=== PATIENT | female | born 1950 | race Caucasian/White ===

== ENCOUNTER 2016-11-23 11:04 | Outpatient (CLI) | payer BC, OTHER ==
[~2016-11-23 11:04] MED LIST: OMEP20TA68 PO
[2016-11-24 10:59] LABS: ALBUMIN 3.6 g/dL (3.4-5.0); BILIRUBIN,TOTAL 0.2 mg/dL (0.2-1.0); CALCIUM 9.2 mg/dL (8.5-10.1); CREATININE 0.8 mg/dL (0.6-1.3); POTASSIUM 4.5 mmol/L (3.5-5.1); TOTAL PROTEIN, SERUM 7.3 g/dL (6.4-8.2)
[2016-11-24 11:09] LABS: THYROID STIMULATING HORMONE 1.334 mIU/mL (0.358-3.740)
[2016-11-24 11:47] LABS: BASOPHILS % (AUTO) 0.5 % (0.0-2.0); EOSINOPHILS # (AUTO) 0.1 K/uL (0.0-0.7); EOSINOPHILS % (AUTO) 1.1 % (0.0-7.0); HEMATOCRIT 42.2 % (37-47); HEMOGLOBIN 14.1 G/DL (12.0-16.0); LYMPHOCYTES # (AUTO) 1.8 K/UL (0.8-4.8); LYMPHOCYTES % (AUTO) 29.5 % (20.5-51.5); MEAN CORPUSCULAR HEMOGLOBIN 28.1 UUG (27.0-31.0); MEAN CORPUSCULAR HGB CONC 34 g/dL (32.0-37.0); MEAN CORPUSCULAR VOLUME 83.8 FL (81.0-99.0); MONOCYTES # (AUTO) 0.3 K/UL (0.1-1.30); MONOCYTES % (AUTO) 4.9 % (0.0-11.0); PLATELET COUNT (AUTO) 211 K/UL (150-450); RED BLOOD CELL COUNT(AUTO) 5.03 MIL/UL (4.2-5.4); RED CELL DISTRIBUTION WIDTH 13.8 % (11.5-14.5); WHITE BLOOD COUNT (AUTO) 6.2 K/UL (4.0-11.2)
== END 2016-11-23 23:59 | disposition home or self-care (01) ==
LOC: LAB 11:04
PROVIDERS: ATTEND Family Medicine
DX: K29.70 Gastritis, unspecified, without bleeding (principal); K76.0 Fatty (change of) liver, not elsewhere classified
CPT/HCPCS: 36415; 84443; 85025

== ENCOUNTER 2017-06-10 15:20 | Emergency (ER) | payer BC, OTHER ==
[~2017-06-10] VITALS: Ht 160 cm; Wt 68.0 kg
[~2017-06-10 15:20] MED LIST changes: +OMEP20TA5 PO; -OMEP20TA68 PO
[2017-06-10 15:54] VITALS: BP 144/76
--- NOTE | 2017-06-10 15:54 | NUR ---
Patient discharged to home in stable conditon. Written and verbal after care instructions given. Patient verbalizes understanding of instructions.
== END 2017-06-10 15:55 | disposition home or self-care (01) ==
LOC: ER 15:21
DX: R09.82 Postnasal drip (principal); J45.909 Unspecified asthma, uncomplicated; K21.9 Gastro-esophageal reflux disease without esophagitis; K58.9 Irritable bowel syndrome, unspecified
CPT/HCPCS: 99282; A4663

== ENCOUNTER 2017-12-03 14:07 | Outpatient (CLI) | payer BC, OTHER ==
[2017-12-03 15:02] LABS: BASOPHILS % (AUTO) 0.4 % (0.0-2.0); EOSINOPHILS # (AUTO) 0.1 K/uL (0.0-0.7); EOSINOPHILS % (AUTO) 2.1 % (0.0-7.0); HEMATOCRIT 42.4 % (31.2-41.9); MEAN CORPUSCULAR HEMOGLOBIN 28.4 uug (24.7-32.8); MEAN CORPUSCULAR HGB CONC 33 g/dL (32.3-35.6); MONOCYTES # (AUTO) 0.4 K/uL (2.0-10.0); MONOCYTES % (AUTO) 6.2 % (0.0-11.0); NEUTROPHILS # (AUTO) 3.6 K/uL (1.8-8.9); NEUTROPHILS % (AUTO) 58.3 % (38.5-71.5); PLATELET COUNT (AUTO) 196 K/uL (179-408); RED BLOOD CELL COUNT(AUTO) 4.94 MIL/uL (3.63-4.92); WHITE BLOOD COUNT (AUTO) 6.2 K/uL (3.8-11.8)
[2017-12-03 15:24] LABS: THYROID STIMULATING HORMONE 1.613 mIU/mL (0.358-3.740)
[2017-12-03 15:44] LABS: BILIRUBIN,TOTAL 0.4 mg/dL (0.2-1.0); CREATININE 0.9 mg/dL (0.6-1.3); POTASSIUM 4.1 mmol/L (3.5-5.1); TOTAL PROTEIN, SERUM 7.9 g/dL (6.4-8.2)
== END 2017-12-03 23:59 | disposition home or self-care (01) ==
LOC: LAB 14:07
PROVIDERS: ATTEND Family Medicine
DX: K76.0 Fatty (change of) liver, not elsewhere classified (principal); E55.9 Vitamin D deficiency, unspecified
CPT/HCPCS: 36415; 82306; 84443; 85025

== ENCOUNTER 2018-07-13 15:06 | Emergency (ER) | payer BC, OTHER ==
[~2018-07-13] VITALS: Ht 157.5 cm; Wt 68.0 kg
== END 2018-07-13 15:28 | disposition home or self-care (01) ==
LOC: ER 15:06
DX: M54.41 Lumbago with sciatica, right side (principal); Z79.899 Other long term (current) drug therapy
CPT/HCPCS: A4663

== ENCOUNTER 2018-09-01 21:08 | Outpatient (CLI) | payer BC, OTHER | END 2018-09-01 23:59 | disposition home or self-care (01) | LOC: RAD 21:08 | PROVIDERS: ATTEND Family Medicine | DX: M47.815 Spondylosis without myelopathy or radiculopathy, thoracolumbar region (principal); M41.86 Other forms of scoliosis, lumbar region | CPT/HCPCS: 72110 ==

== ENCOUNTER 2019-01-05 15:45 | Outpatient (CLI) | payer BC, OTHER | END 2019-01-05 23:59 | disposition home or self-care (01) | LOC: RAD 15:45 | PROVIDERS: ATTEND Family Medicine | DX: I70.0 Atherosclerosis of aorta (principal); M47.814 Spondylosis without myelopathy or radiculopathy, thoracic region; Z20.1 Contact with and (suspected) exposure to tuberculosis | CPT/HCPCS: 71046 ==

== ENCOUNTER 2019-05-09 12:35 | Emergency (ER) | payer OTHER ==
[~2019-05-09] VITALS: Ht 152.4 cm; Wt 71.7 kg
[2019-05-09] MEDS ORDERED: KETOROLAC TROMETHAMINE 30 MG INJ IM ONE (13:15)
[2019-05-09] MEDS ORDERED: KETOROLAC TROMETHAMINE 30 MG INJ ONE (13:31)
--- NOTE | 2019-05-09 14:10 | NUR ---
DCD instructions and prescription given to patient. pt. wheel to her car. 08/28 pain
== END 2019-05-09 14:19 | disposition home or self-care (01) ==
LOC: ER 12:35
DX: S83.92XA Sprain of unspecified site of left knee, initial encounter (principal); K21.9 Gastro-esophageal reflux disease without esophagitis; Z79.899 Other long term (current) drug therapy; W01.0XXA Fall on same level from slipping, tripping and stumbling without subsequent striking against object, initial encounter; Y93.89 Activity, other specified; Y92.89 Other specified places as the place of occurrence of the external cause; Y99.8 Other external cause status
CPT/HCPCS: 29505; 73564; 96372; 99283; J1885; A4663

== ENCOUNTER 2019-06-06 19:12 | Outpatient (CLI) | payer BC, OTHER | END 2019-06-06 23:59 | disposition home or self-care (01) | LOC: RAD 19:12 → XRAY 23:59 | PROVIDERS: ATTEND Family Medicine | DX: M19.072 Primary osteoarthritis, left ankle and foot (principal); M77.32 Calcaneal spur, left foot; K21.9 Gastro-esophageal reflux disease without esophagitis; F32.9 Major depressive disorder, single episode, unspecified; F41.9 Anxiety disorder, unspecified | CPT/HCPCS: 73610 ==

== ENCOUNTER 2019-09-21 20:45 | Outpatient (CLI) | payer BC, OTHER | END 2019-09-21 23:59 | disposition home or self-care (01) | LOC: RAD 20:45 | PROVIDERS: ATTEND Family Medicine | DX: M19.072 Primary osteoarthritis, left ankle and foot (principal); M77.32 Calcaneal spur, left foot; M25.562 Pain in left knee | CPT/HCPCS: 73562; 73610 ==

== ENCOUNTER 2020-01-02 16:34 | Outpatient (CLI) | payer BC, OTHER | END 2020-01-02 23:59 | disposition home or self-care (01) | LOC: XRAY 16:34 | PROVIDERS: ATTEND Family Medicine | DX: M43.16 Spondylolisthesis, lumbar region (principal); M46.04 Spinal enthesopathy, thoracic region; M41.85 Other forms of scoliosis, thoracolumbar region; I51.7 Cardiomegaly; Z90.49 Acquired absence of other specified parts of digestive tract | CPT/HCPCS: 72072; 72100 ==

== ENCOUNTER 2020-04-13 22:14 | Outpatient (CLI) | payer BC, OTHER ==
[2020-04-13 23:11] LABS: BASOPHILS % (AUTO) 0.7 % (0.0-2.0); EOSINOPHILS # (AUTO) 0.1 K/uL (0.0-0.7); EOSINOPHILS % (AUTO) 1.3 % (0.0-7.0); HEMATOCRIT 39.2 % (31.2-41.9); HEMOGLOBIN 12.9 g/dL (10.9-14.3); LYMPHOCYTES # (AUTO) 2.1 K/uL (20.0-40.0); LYMPHOCYTES % (AUTO) 32.5 % (20.5-51.5); MEAN CORPUSCULAR HEMOGLOBIN 28.8 uug (24.7-32.8); MEAN CORPUSCULAR HGB CONC 33 g/dL (32.3-35.6); MEAN CORPUSCULAR VOLUME 87.3 fL (75.5-95.3); MONOCYTES # (AUTO) 0.5 K/uL (2.0-10.0); NEUTROPHILS # (AUTO) 3.7 K/uL (1.8-8.9); NEUTROPHILS % (AUTO) 57.5 % (38.5-71.5); PLATELET COUNT (AUTO) 264 K/uL (179-408); RED BLOOD CELL COUNT(AUTO) 4.49 MIL/uL (3.63-4.92); WHITE BLOOD COUNT (AUTO) 6.4 K/uL (3.8-11.8)
[2020-04-13 23:16] LABS: BILIRUBIN,TOTAL 0.2 mg/dL (0.2-1.0); CREATININE 0.9 mg/dL (0.6-1.3); POTASSIUM 4.1 mmol/L (3.5-5.1); TOTAL PROTEIN, SERUM 6.8 g/dL (6.4-8.2)
[2020-04-13 23:23] LABS: THYROID STIMULATING HORMONE 2.508 mIU/mL (0.358-3.740)
== END 2020-04-13 23:59 | disposition home or self-care (01) ==
LOC: LAB 22:14
PROVIDERS: ATTEND Family Medicine
DX: I10 Essential (primary) hypertension (principal); E16.2 Hypoglycemia, unspecified; R42 Dizziness and giddiness
CPT/HCPCS: 36415; 82306; 84443; 85025

== ENCOUNTER 2020-09-04 15:50 | Emergency (ER) | payer BC, OTHER ==
[~2020-09-04] VITALS: Ht 152.4 cm; Wt 63.5 kg
[2020-09-04] MEDS ORDERED: ACETAMINOPHEN ES 500 MG TABLET PO ONE (16:15)
[2020-09-04] MEDS ORDERED: ACETAMINOPHEN ES 500 MG TABLET ONE (16:16)
== END 2020-09-04 16:48 | disposition home or self-care (01) ==
LOC: ER 15:51
DX: S09.90XA Unspecified injury of head, initial encounter (principal); S80.02XA Contusion of left knee, initial encounter; S83.92XA Sprain of unspecified site of left knee, initial encounter; W10.9XXA Fall (on) (from) unspecified stairs and steps, initial encounter; Y92.239 Unspecified place in hospital as the place of occurrence of the external cause; Y99.0 Civilian activity done for income or pay; K21.9 Gastro-esophageal reflux disease without esophagitis; K58.9 Irritable bowel syndrome, unspecified; Z79.899 Other long term (current) drug therapy
CPT/HCPCS: 70450; A4663; A9150

== ENCOUNTER 2020-09-25 09:07 | Outpatient (CLI) | payer BC, OTHER ==
[2020-09-25 09:26] LABS: *BILIRUBIN,URIN NEGATIVE (NEGATIVE); *BLOOD, URINE 1+ (NEGATIVE); *CLARITY,URINE SLIGHTLY CLOUDY (CLEAR); *COLOR,URINE YELLOW (YELLOW); *KETONES,URINE NEGATIVE (NEGATIVE); *UROBILINOGEN,URINE 0.2 E.U./dl (NORMAL); LEUKOCYTE ESTERASE ,URINE 1+ (NEGATIVE); NITRITE, URINE NEGATIVE (NEGATIVE); PH,URINE 5.5 (5.0-8.0); UGLUCOSE NEGATIVE (NEGATIVE)
[2020-09-25 09:31] LABS: BASOPHILS % (AUTO) 0.5 % (0.0-2.0); EOSINOPHILS # (AUTO) 0.2 K/uL (0.0-0.7); HEMATOCRIT 39.7 % (31.2-41.9); HEMOGLOBIN 13.2 g/dL (10.9-14.3); LYMPHOCYTES # (AUTO) 1.8 K/uL (20.0-40.0); LYMPHOCYTES % (AUTO) 30.3 % (20.5-51.5); MEAN CORPUSCULAR HEMOGLOBIN 28.4 uug (24.7-32.8); MEAN CORPUSCULAR HGB CONC 33 g/dL (32.3-35.6); MEAN CORPUSCULAR VOLUME 85.5 fL (75.5-95.3); MONOCYTES # (AUTO) 0.4 K/uL (2.0-10.0); MONOCYTES % (AUTO) 7.4 % (0.0-11.0); NEUTROPHILS # (AUTO) 3.5 K/uL (1.8-8.9); NEUTROPHILS % (AUTO) 58.8 % (38.5-71.5); PLATELET COUNT (AUTO) 232 K/uL (179-408); RED BLOOD CELL COUNT(AUTO) 4.64 MIL/uL (3.63-4.92)
[2020-09-25 09:52] LABS: BILIRUBIN,TOTAL 0.2 mg/dL (0.2-1.0); CREATININE 0.8 mg/dL (0.6-1.3); POTASSIUM 5.3 mmol/L (3.5-5.1); TOTAL PROTEIN, SERUM 7.4 g/dL (6.4-8.2); URIC ACID 5.8 mg/dL (2.6-6.0)
[2020-09-25 10:42] LABS: THYROID STIMULATING HORMONE 2.923 mIU/mL (0.358-3.740)
[2020-09-25 13:06] LABS: RBC,URINE 0-3 /HPF (0-3)
[2020-09-25 13:07] LABS: BACTERIA,URINE NONE SEEN /HPF (NONE SEEN); SQUAMOUS EPITHELIAL CELL,UR FEW /HPF (NONE SEEN)
== END 2020-09-25 23:59 | disposition home or self-care (01) ==
LOC: LAB 09:07
PROVIDERS: ATTEND Family Medicine
DX: E55.9 Vitamin D deficiency, unspecified (principal); I27.20 Pulmonary hypertension, unspecified; K76.0 Fatty (change of) liver, not elsewhere classified; N32.81 Overactive bladder
CPT/HCPCS: 36415; 82306; 84443; 84550; 85025; 87086

== ENCOUNTER → 2020-10-11 | Outpatient (CLI) | payer BC, OTHER ==
[~2020-10-11] MED LIST changes: +IOHEXOL 300MG/ML 100 ML INFUS..BTL ONE; +IV NORMAL SALINE 250 ML IV ONE; +SWABABLE VALVE TRANSFER SET EA MC ONE
[2020-10-11 08:59] LABS: CREATININE 0.9 mg/dL (0.6-1.3)
== END | disposition home or self-care (01) ==
LOC: LAB 08:39
PROVIDERS: ATTEND Family Medicine
DX: K57.30 Diverticulosis of large intestine without perforation or abscess without bleeding (principal); K43.9 Ventral hernia without obstruction or gangrene; R31.9 Hematuria, unspecified; I70.0 Atherosclerosis of aorta; M46.00 Spinal enthesopathy, site unspecified; Z90.49 Acquired absence of other specified parts of digestive tract
CPT/HCPCS: 36415; 74178; 82565; 84520; Q9967; J7050

== ENCOUNTER 2020-11-28 08:56 | Emergency (ER) | payer BC, OTHER ==
[~2020-11-28] VITALS: Ht 152.4 cm; Wt 63.5 kg
[~2020-11-28 08:56] MED LIST changes: -IOHEXOL 300MG/ML 100 ML INFUS..BTL ONE; -IV NORMAL SALINE 250 ML IV ONE; -SWABABLE VALVE TRANSFER SET EA MC ONE
--- NOTE | 2020-11-28 08:59 | NUR ---
DR Katz at the bedside for MSE.
[2020-11-28] MEDS ORDERED: ONDANSETRON ODT 4 MG TAB.RAPDIS ONE (09:08)
[2020-11-28] MEDS ORDERED: ONDANSETRON ODT 4 MG TAB.RAPDIS SL ONE (09:15)
[2020-11-28] MEDS ORDERED: CLONIDINE HCL 0.2 MG TABLET PO ONE (09:15)
--- NOTE | 2020-11-28 10:30 | NUR ---
Pt denies dizziness. Pt stood up and walked in the hallway, no lightheadedness noted.
--- NOTE | 2020-11-28 10:39 | NUR ---
Patient discharged to home in stable condition. Written and verbal after care instructions given. Patient verbalizes understanding of instructions. Stressed follow up or return to ER for worsening s/s. Pt left ER w/ steady gait accomapined by daughter.
[2020-11-28 10:40] VITALS: BP 121/56
== END 2020-11-28 10:41 | disposition home or self-care (01) ==
LOC: ER 08:56
DX: I10 Essential (primary) hypertension (principal); K58.9 Irritable bowel syndrome, unspecified; K21.9 Gastro-esophageal reflux disease without esophagitis; Z79.899 Other long term (current) drug therapy
CPT/HCPCS: A4663; Q0162

== ENCOUNTER 2020-12-05 11:03 | Outpatient (CLI) | payer BC, OTHER | END 2020-12-05 23:59 | disposition home or self-care (01) | LOC: CT 11:03 | PROVIDERS: ATTEND Family Medicine | DX: G31.9 Degenerative disease of nervous system, unspecified (principal) | CPT/HCPCS: 70450 ==

== ENCOUNTER 2021-01-03 06:30 | Outpatient (CLI) | payer BC, OTHER | END 2021-01-03 23:59 | disposition home or self-care (01) | LOC: LAB 06:30 | PROVIDERS: ATTEND Internal Medicine Gastroenterology | DX: Z01.812 Encounter for preprocedural laboratory examination (principal); Z20.822 Contact with and (suspected) exposure to COVID-19; K21.9 Gastro-esophageal reflux disease without esophagitis ==

== ENCOUNTER 2021-03-07 06:30 | Outpatient (CLI) | payer BC, OTHER | END 2021-03-07 23:59 | disposition home or self-care (01) | LOC: LAB 06:30 | PROVIDERS: ATTEND Internal Medicine Gastroenterology | DX: Z01.812 Encounter for preprocedural laboratory examination (principal); Z20.822 Contact with and (suspected) exposure to COVID-19 ==

== ENCOUNTER 2021-03-10 12:39 | Day surgery (SDC) | payer BC, OTHER ==
[2021-03-10] MEDS ORDERED: PROPOFOL 200 MG/20 ML BOTTLE IV ONE (12:40)
[2021-03-10] MEDS ORDERED: IRR STERIL WATER FOR IRR 1000 ML BOTTLE IR ONE (12:40)
[2021-03-10] MEDS ORDERED: LIDOCAINE-MPF 2% 5 ML VIAL IJ ONE (12:40)
[2021-03-10 13:54] LABS: HEMATOCRIT 40.3 % (31.2-41.9); MEAN CORPUSCULAR HEMOGLOBIN 28.7 uug (24.7-32.8); MEAN CORPUSCULAR VOLUME 85.8 fL (75.5-95.3); PLATELET COUNT (AUTO) 230 K/uL (179-408)
[2021-03-10 13:59] LABS: CREATININE 0.8 mg/dL (0.6-1.3); POTASSIUM 4.1 mmol/L (3.5-5.1)
[2021-03-10 14:00] LABS: *BILIRUBIN,URIN NEGATIVE (NEGATIVE); *BLOOD, URINE 1+ (NEGATIVE); *CLARITY,URINE CLEAR (CLEAR); *COLOR,URINE YELLOW (YELLOW); *KETONES,URINE NEGATIVE (NEGATIVE); *UROBILINOGEN,URINE 0.2 E.U./dl (NORMAL); LEUKOCYTE ESTERASE ,URINE NEGATIVE (NEGATIVE); NITRITE, URINE NEGATIVE (NEGATIVE); UGLUCOSE NEGATIVE (NEGATIVE)
[2021-03-10 14:04] LABS: BILIRUBIN,TOTAL 0.4 mg/dL (0.2-1.0); TOTAL PROTEIN, SERUM 6.9 g/dL (6.4-8.2)
[2021-03-10 19:05] LABS: BACTERIA,URINE FEW /HPF (NONE SEEN); SQUAMOUS EPITHELIAL CELL,UR FEW /HPF (NONE SEEN); WBC,URINE 0-3 /HPF (0-3)
== END 2021-03-10 16:45 | disposition home or self-care (01) ==
LOC: DS 12:39
PROVIDERS: ATTEND Internal Medicine Gastroenterology
DX: Z12.11 Encounter for screening for malignant neoplasm of colon (principal); K57.30 Diverticulosis of large intestine without perforation or abscess without bleeding; K64.8 Other hemorrhoids; R10.13 Epigastric pain; K21.00 Gastro-esophageal reflux disease with esophagitis, without bleeding; K44.9 Diaphragmatic hernia without obstruction or gangrene; K31.89 Other diseases of stomach and duodenum; K63.89 Other specified diseases of intestine; K29.50 Unspecified chronic gastritis without bleeding; J45.909 Unspecified asthma, uncomplicated; F41.9 Anxiety disorder, unspecified; F32.9 Major depressive disorder, single episode, unspecified; Z79.899 Other long term (current) drug therapy; Z98.890 Other specified postprocedural states
CPT/HCPCS: 36415; 43239; 45378; 71045; 80053; 81001; 85025; 85730; 93005; J7120; 88313-TC; 88342; A4217; A4663; J3490

== ENCOUNTER 2022-02-23 22:13 | Emergency (ER) | payer BC, OTHER ==
[~2022-02-23] VITALS: Ht 152.4 cm; Wt 72.6 kg
--- NOTE | 2022-02-23 23:00 | NUR ---
Dr Wisdom in room. MSE in progress.
--- NOTE | 2022-02-23 23:01 | NUR ---
Izzy ( checking clerk) translating for Dr Wisdmo
[2022-02-23] MEDS ORDERED: OXYC-128 PO (23:39)
--- NOTE | 2022-02-23 23:45 | NUR ---
Patient discharged to home in stable condition. Written and verbal after care instructions given. Patient verbalizes understanding of instructions. Stressed follow up or return to ER for worsening s/s. Patient is a/ox4, NAD noted. Patient is able to walk with steady gait
[2022-02-23 23:46] VITALS: BP 145/71
== END 2022-02-23 23:45 | disposition home or self-care (01) ==
LOC: ER 22:15
DX: S39.012A Strain of muscle, fascia and tendon of lower back, initial encounter (principal); X58.XXXA Exposure to other specified factors, initial encounter; Y92.89 Other specified places as the place of occurrence of the external cause; I10 Essential (primary) hypertension; J45.909 Unspecified asthma, uncomplicated; K58.9 Irritable bowel syndrome, unspecified; K21.9 Gastro-esophageal reflux disease without esophagitis
CPT/HCPCS: A4663

== ENCOUNTER 2022-04-03 10:52 | Outpatient (CLI) | payer BC, OTHER ==
[~2022-04-03 10:52] MED LIST changes: +OXYC-128 PO
[2022-04-03 11:11] LABS: *BILIRUBIN,URIN NEGATIVE (NEGATIVE); *CLARITY,URINE CLEAR (CLEAR); *COLOR,URINE YELLOW (YELLOW); *KETONES,URINE NEGATIVE (NEGATIVE); *UROBILINOGEN,URINE 0.2 E.U./dl (NORMAL); LEUKOCYTE ESTERASE ,URINE 1+ (NEGATIVE); NITRITE, URINE NEGATIVE (NEGATIVE); UGLUCOSE NEGATIVE (NEGATIVE)
[2022-04-03 11:22] LABS: *BLOOD, URINE TRACE (NEGATIVE)
[2022-04-03 11:52] LABS: RBC,URINE 0-3 /HPF (0-3)
[2022-04-03 11:53] LABS: BACTERIA,URINE FEW /HPF (NONE SEEN); SQUAMOUS EPITHELIAL CELL,UR FEW /HPF (NONE SEEN)
== END 2022-04-03 23:59 | disposition home or self-care (01) ==
LOC: LAB 10:52
PROVIDERS: ATTEND Family Medicine
DX: R31.9 Hematuria, unspecified (principal)
CPT/HCPCS: 87086

== ENCOUNTER 2022-06-02 10:14 | Emergency (ER) | payer BC, OTHER ==
[~2022-06-02] VITALS: Ht 157.5 cm; Wt 77.1 kg
[2022-06-02] MEDS ORDERED: GUAIFENESIN/DEXTROMETHORPHAN TAB.SR.12H PO STA (10:44)
[2022-06-02] MEDS ORDERED: BENZONATATE 100 MG CAPSULE PO ONE (10:45)
[2022-06-02] MEDS ORDERED: KETOROLAC TROMETHAMINE 15 MG INJ IM ONE (10:45)
[2022-06-02] MEDS ORDERED: KETOROLAC TROMETHAMINE 15 MG INJ ONE (10:49)
[2022-06-02] MEDS ORDERED: BENZONATATE 100 MG CAPSULE ONE (10:49)
[2022-06-02] MEDS ORDERED: ONDANSETRON ODT 4 MG TAB.RAPDIS ONE (10:49)
[2022-06-02] MEDS ORDERED: ONDANSETRON ODT 4 MG TAB.RAPDIS SL ONE (11:00)
--- NOTE | 2022-06-02 11:00 | NUR ---
Pt arrived accompanied by grand daughter with c/o covid-19 positive, chest congestion and productive coughing x 6 days. Sore throat and pain, 6/10 and pain on the bilateral shoulders rated 7/10. Nausea present without emesis, denies headache and dizziness. Denies SOB and dyspnea. Seen by SULMA for MSE.
[2022-06-02] MEDS ORDERED: ONDA4TAB5 PO (11:04)
[2022-06-02] MEDS ORDERED: GUAI1TBM19 PO (11:04)
[2022-06-02] MEDS ORDERED: BENZ-13 PO (11:04)
[2022-06-02 11:28] LABS: ALANINE AMINOTRANSFERASE 29 U/L (14-59); ALKALINE PHOSPHATASE 105 U/L (50-136); ASPARTATE AMINOTRANSFERASE 26 U/L (15-37); BILIRUBIN,TOTAL 0.4 mg/dL (0.2-1.0); CARBON DIOXIDE 29 mmol/L (21-32); CHLORIDE 101 mmol/L (98-107); CREATININE 0.9 mg/dL (0.6-1.3); GLUCOSE 100 mg/dL (74-106); POTASSIUM 4.1 mmol/L (3.5-5.1); TOTAL PROTEIN, SERUM 6.9 g/dL (6.4-8.2); UREA NITROGEN, BLOOD 14 mg/dL (7-18)
--- NOTE | 2022-06-02 12:26 | NUR ---
Pt discharged to home in stable condition. Excuse paperwork given per pt's request, excused for today til 06/04. Written and verbal after care instructions given. Pt verbalizes understanding of instructions. Stressed follow up or return to ER for worsening s/s.
[2022-06-02 12:27] VITALS: BP 135/74
== END 2022-06-02 12:30 | disposition home or self-care (01) ==
LOC: ER 10:14
DX: U07.1 COVID-19 (principal); R11.0 Nausea; J02.9 Acute pharyngitis, unspecified; I10 Essential (primary) hypertension; J45.909 Unspecified asthma, uncomplicated; Z90.49 Acquired absence of other specified parts of digestive tract; K58.9 Irritable bowel syndrome, unspecified
CPT/HCPCS: 99284; 80053; 36415; 96372; J1885; A4663; Q0162

== ENCOUNTER 2022-06-24 15:23 | Outpatient (CLI) | payer BC, OTHER ==
[~2022-06-24 15:23] MED LIST changes: +BENZ-13 PO; +GUAI1TBM19 PO; +ONDA4TAB5 PO
--- NOTE | 2022-06-24 15:57 | NUR ---
patient did not show up.
== END 2022-06-24 23:59 | disposition home or self-care (01) ==
LOC: RAD 15:23
PROVIDERS: ATTEND Family Medicine
DX: S09.93XA Unspecified injury of face, initial encounter (principal); M79.89 Other specified soft tissue disorders; X58.XXXA Exposure to other specified factors, initial encounter; Y93.89 Activity, other specified; Y92.89 Other specified places as the place of occurrence of the external cause; Y99.8 Other external cause status
CPT/HCPCS: 70150; 70450

== ENCOUNTER 2022-07-08 10:28 | Outpatient (CLI) | payer BC, OTHER | END 2022-07-08 23:59 | disposition home or self-care (01) | LOC: LAB 10:28 | PROVIDERS: ATTEND Family Medicine | DX: Z01.818 Encounter for other preprocedural examination (principal) | CPT/HCPCS: 36415; 85025; 85610; 85730 ==

== ENCOUNTER 2022-07-09 14:46 | Outpatient (CLI) | payer BC, OTHER | END 2022-07-09 23:59 | disposition home or self-care (01) | LOC: LAB 14:46 → RAD 23:59 | PROVIDERS: ATTEND Family Medicine | DX: Z01.818 Encounter for other preprocedural examination (principal) | CPT/HCPCS: 71046 ==

== ENCOUNTER 2022-07-13 14:22 | Emergency (ER) | payer BC, OTHER ==
[~2022-07-13] VITALS: Ht 154.9 cm; Wt 72.6 kg
[2022-07-13 14:47] LABS: *BILIRUBIN,URIN NEGATIVE (NEGATIVE); *CLARITY,URINE CLEAR (CLEAR); *COLOR,URINE YELLOW (YELLOW); *KETONES,URINE NEGATIVE (NEGATIVE); *UROBILINOGEN,URINE 0.2 E.U./dl (NORMAL); LEUKOCYTE ESTERASE ,URINE 1+ (NEGATIVE); NITRITE, URINE NEGATIVE (NEGATIVE); PH,URINE 5.5 (5.0-8.0); UGLUCOSE NEGATIVE (NEGATIVE)
[2022-07-13 15:02] LABS: *BLOOD, URINE TRACE (NEGATIVE)
[2022-07-13] MEDS ORDERED: CEPH500C2 PO (15:24)
--- NOTE | 2022-07-13 15:41 | NUR ---
Patient discharged to home in stable condition. Written and verbal after care instructions given. Patient verbalizes understanding of instructions. Stressed follow up or return to ER for worsening s/s.
[2022-07-13 15:43] VITALS: BP 130/80
[2022-07-13 18:04] LABS: BACTERIA,URINE FEW /HPF (NONE SEEN); SQUAMOUS EPITHELIAL CELL,UR FEW /HPF (NONE SEEN)
== END 2022-07-13 15:43 | disposition home or self-care (01) ==
LOC: ER 14:23
DX: Z01.812 Encounter for preprocedural laboratory examination (principal); N39.0 Urinary tract infection, site not specified; H26.9 Unspecified cataract; Z90.49 Acquired absence of other specified parts of digestive tract; J45.909 Unspecified asthma, uncomplicated; I10 Essential (primary) hypertension; K51.90 Ulcerative colitis, unspecified, without complications
CPT/HCPCS: A4663

== ENCOUNTER 2022-07-14 07:43 | Outpatient (CLI) | payer BC, OTHER ==
[2022-07-08 11:06] LABS: HEMATOCRIT 37.5 % (31.2-41.9); MEAN CORPUSCULAR HEMOGLOBIN 28.3 uug (24.7-32.8); MEAN CORPUSCULAR VOLUME 87.4 fL (75.5-95.3); PLATELET COUNT (AUTO) 228 K/uL (179-408)
[2022-07-08 11:23] LABS: BILIRUBIN,TOTAL 0.2 mg/dL (0.2-1.0); CREATININE 0.8 mg/dL (0.6-1.3); POTASSIUM 4.6 mmol/L (3.5-5.1); TOTAL PROTEIN, SERUM 6.9 g/dL (6.4-8.2)
[2022-07-08 11:40] LABS: *BILIRUBIN,URIN NEGATIVE (NEGATIVE); *CLARITY,URINE CLEAR (CLEAR); *COLOR,URINE YELLOW (YELLOW); *KETONES,URINE TRACE (NEGATIVE); *UROBILINOGEN,URINE 0.2 E.U./dl (NORMAL); LEUKOCYTE ESTERASE ,URINE 1+ (NEGATIVE); NITRITE, URINE NEGATIVE (NEGATIVE); PH,URINE 5.5 (5.0-8.0); UGLUCOSE NEGATIVE (NEGATIVE)
[2022-07-08 11:43] LABS: *BLOOD, URINE TRACE (NEGATIVE)
[2022-07-08 12:20] LABS: BACTERIA,URINE FEW /HPF (NONE SEEN); SQUAMOUS EPITHELIAL CELL,UR FEW /HPF (NONE SEEN)
[~2022-07-14 07:43] MED LIST changes: +CEPH500C2 PO
== END 2022-07-14 23:59 | disposition home or self-care (01) ==
LOC: LAB 07:43
PROVIDERS: ATTEND Ophthalmology
DX: Z01.812 Encounter for preprocedural laboratory examination (principal); Z20.822 Contact with and (suspected) exposure to COVID-19
CPT/HCPCS: 36415; 85025; 85610; 85730

== ENCOUNTER 2022-07-15 10:19 | Day surgery (SDC) | payer BC, OTHER ==
[~2022-07-15 10:19] MED LIST changes: +BALANCED SALT IRRIG SOLN COMB1 500 ML, EPINEPHRINE-PF 1:1000 0.5 MG IO ONE
[2022-07-15] MEDS ORDERED: ONDANSETRON 4 MG/2 ML VIAL IV ONE (10:20)
[2022-07-15] MEDS ORDERED: KETOROLAC 0.5% OPHT DROP 3 ML BOTTLE ONE (10:34)
[2022-07-15] MEDS ORDERED: CIPROFLOXACIN 0.3% OPHT DROP 2.5 ML BOTTLE ONE ×2 (10:34→11:18)
[2022-07-15] MEDS ORDERED: PHENYLEPHRINE 2.5% OPHT DROP 2 ML BOTTLE ONE (10:34)
[2022-07-15] MEDS ORDERED: CYCLOPENTOLATE 1% OPHT DROP 2 ML BOTTLE ONE (10:34)
[2022-07-15] MEDS ORDERED: TROPICAMIDE 1% OPHT DROP 3 ML BOTTLE ONE (10:35)
[2022-07-15] MEDS ORDERED: PROPARACAINE 0.5% OPHT DROP 15 ML BOTTLE ONE (10:36)
[2022-07-15] MEDS ORDERED: BALANCED SALT IRRIG SOLN COMB2 15 ML IRRIG.SOLN ONE (11:17)
[2022-07-15] MEDS ORDERED: TETRACAINE HCL 0.5% OPHT DROP 2 ML BOTTLE ONE (11:17)
[2022-07-15] MEDS ORDERED: MOXIFLOXACIN HCL 3 ML OPHT DROPS ONE (11:17)
[2022-07-15] MEDS ORDERED: LIDOCAINE 2%-EPI 1:100,000 20 ML VIAL ONE (11:17)
[2022-07-15] MEDS ORDERED: BUPIVACAINE PF 0.5% 30 ML VIAL ONE (11:18)
[2022-07-15] MEDS ORDERED: NEO/POLYMYX B/DEXAME OPHT OINT 3.5 GM TUBE ONE (11:18)
[2022-07-15] MEDS ORDERED: HYALURONIDASE,OVINE 200 UNITS/ML VIAL ONE (11:18)
[2022-07-15] MEDS ORDERED: LIDOCAINE HCL 2% 20 ML VIAL ONE (11:19)
[2022-07-15] MEDS ORDERED: HYALURONATE SODIUM 8.5 MG/0.85 ML ONE (11:23)
[2022-07-15] MEDS ORDERED: HYALURONATE SODIUM 12.8 MG/0.8 ML DISP.SYRIN ONE ×2 (11:23→13:37)
[2022-07-15] MEDS ORDERED: ACETYLCHOLINE CHLORIDE 1% OPHT 1 EA KIT ONE (11:23)
[2022-07-15] MEDS ORDERED: LIDOCAINE HCL 1% 20 ML VIAL ONE (12:47)
[2022-07-15] MEDS ORDERED: FENTANYL CITRATE 100 MCG/2 ML AMPUL ONE (13:12)
== END 2022-07-15 15:15 | disposition home or self-care (01) ==
LOC: DS 10:19
PROVIDERS: ATTEND Ophthalmology
DX: H25.11 Age-related nuclear cataract, right eye (principal); I10 Essential (primary) hypertension; J45.909 Unspecified asthma, uncomplicated; F41.9 Anxiety disorder, unspecified; F32.9 Major depressive disorder, single episode, unspecified; Z79.899 Other long term (current) drug therapy; Z90.49 Acquired absence of other specified parts of digestive tract; Z98.890 Other specified postprocedural states; Z88.8 Allergy status to other drugs, medicaments and biological substances
CPT/HCPCS: 66984; 93005; J3490 ×3; J0171; J2405; J3010; J7120; V2632; J7321 ×3; A4663; J3471

== ENCOUNTER 2023-02-13 20:06 | Emergency (ER) | payer BC, OTHER ==
[~2023-02-13] VITALS: Ht 154.9 cm; Wt 72.6 kg
[~2023-02-13 20:06] MED LIST changes: -BALANCED SALT IRRIG SOLN COMB1 500 ML, EPINEPHRINE-PF 1:1000 0.5 MG IO ONE
--- NOTE | 2023-02-13 20:13 | NUR ---
Patient to room #5, s/p fall at work. Informrd of plan of care, placed on monitor and assisted into gown. ER provider at bedside for exam, no s/s of any distress noted at this time, will continue to monitor.
--- NOTE | 2023-02-13 20:41 | NUR ---
#20g established in right ac, blood collected and sent to lab. Bedside EKG done, awaiting MD review.
[2023-02-13 20:44] LABS: HEMATOCRIT 38.4 % (31.2-41.9); MEAN CORPUSCULAR HEMOGLOBIN 28.1 uug (24.7-32.8); PLATELET COUNT (AUTO) 220 K/uL (179-408)
--- NOTE | 2023-02-13 20:50 | NUR ---
Off unit to CT.
[2023-02-13 21:01] LABS: CARBON DIOXIDE 28 mmol/L (21-32); CHLORIDE 105 mmol/L (98-107); CREATININE 0.9 mg/dL (0.6-1.3); POTASSIUM 4.4 mmol/L (3.5-5.1); UREA NITROGEN, BLOOD 16 mg/dL (7-18)
--- NOTE | 2023-02-13 21:23 | NUR ---
ER provider at bedside talking with patient.
[2023-02-13] MEDS ORDERED: MECL-225 PO (21:35)
[2023-02-13] MEDS ORDERED: ACET325T53 PO (21:35)
[2023-02-13] MEDS ORDERED: ACETAMINOPHEN 325 MG TABLET PO ONE (21:45)
--- NOTE | 2023-02-13 21:56 | NUR ---
HL removed, ACI given, remains stable for discharge.
[2023-02-13 21:57] VITALS: BP 120/81; O2SAT 98
== END 2023-02-13 21:58 | disposition home or self-care (01) ==
LOC: ER 20:06
DX: S16.1XXA Strain of muscle, fascia and tendon at neck level, initial encounter (principal); S09.90XA Unspecified injury of head, initial encounter; R42 Dizziness and giddiness; I11.0 Hypertensive heart disease with heart failure; I50.9 Heart failure, unspecified; K21.9 Gastro-esophageal reflux disease without esophagitis; Z90.49 Acquired absence of other specified parts of digestive tract; Z88.8 Allergy status to other drugs, medicaments and biological substances; Z79.899 Other long term (current) drug therapy; W01.0XXA Fall on same level from slipping, tripping and stumbling without subsequent striking against object, initial encounter; Y93.89 Activity, other specified; Y92.89 Other specified places as the place of occurrence of the external cause; Y99.8 Other external cause status
CPT/HCPCS: 36415; 70450; 84484; 85025; 85730; A4663

== ENCOUNTER 2023-07-29 09:28 | Emergency (ER) | payer BC, OTHER ==
[~2023-07-29] VITALS: Ht 149.9 cm; Wt 77.1 kg
[~2023-07-29 09:28] MED LIST changes: +ACET325T53 PO; +MECL-225 PO
[2023-07-29] MEDS ORDERED: MISCELLANEOUS MED XX ONE ×4 (10:30→12:00)
[2023-07-29] MEDS ORDERED: diphenhydrAMINE 50 MG/1 ML VIAL IV ONE (10:30)
[2023-07-29] MEDS ORDERED: LIDOCAINE 2%-EPI 1:100,000 20 ML VIAL ONE (10:36)
[2023-07-29] MEDS ORDERED: TRIAMCINOLONE ACETONIDE 40 MG/1 ML VIAL ONE (10:40)
[2023-07-29] MEDS ORDERED: LIDOCAINE 2%-EPI 1:100,000 20 ML VIAL IJ ONE (10:45)
[2023-07-29] MEDS ORDERED: BUPIVACAINE 0.25% 30 ML VIAL ONE (11:03)
[2023-07-29 11:57] VITALS: BP 139/69; O2SAT 96
[2023-07-29] MEDS ORDERED: BUPIVACAINE 0.25% 30 ML VIAL TP ONE (12:00)
== END 2023-07-29 11:59 | disposition home or self-care (01) ==
LOC: ER 09:28
DX: M17.11 Unilateral primary osteoarthritis, right knee (principal); I50.9 Heart failure, unspecified; K21.9 Gastro-esophageal reflux disease without esophagitis; Z90.49 Acquired absence of other specified parts of digestive tract; Z88.8 Allergy status to other drugs, medicaments and biological substances; Z79.899 Other long term (current) drug therapy
CPT/HCPCS: 99284; 20610; 73560 ×2; J3490; J3301; A4606; A4663